=== PATIENT | female | born 1955 | race Native Hawaiian/Other Pacific Islander ===

== ENCOUNTER 2019-07-24 13:05 | Outpatient (CLI) | payer OTHER, BC ==
[2019-07-24 13:35] LABS: PLATELET COUNT 252 K/uL (152-353)
[2019-07-24 13:55] LABS: POTASSIUM 3.9 mmol/L (3.6-5.2)
== END 2019-07-24 19:15 | disposition home or self-care (01) ==
LOC: US 13:05
PROVIDERS: Emergency Medicine
DX: Z01.812 Encounter for preprocedural laboratory examination (principal); R60.0 Localized edema; M79.7 Fibromyalgia; M25.562 Pain in left knee; M54.5 Low back pain; M25.561 Pain in right knee; R82.998 Other abnormal findings in urine; R60.1 Generalized edema; M79.662 Pain in left lower leg; G89.4 Chronic pain syndrome
CPT/HCPCS: 36415; 80053; 81000; 84436; 84443; 84479; 85027; 87077; 87086; 87088; 87186

== ENCOUNTER 2019-10-15 11:10 | Outpatient (CLI) | payer OTHER, BC ==
[2019-10-15 12:04] LABS: PLATELET COUNT 394 K/uL (152-353)
[2019-10-15 12:40] LABS: POTASSIUM 4.1 mmol/L (3.6-5.2)
== END 2019-10-15 20:26 | disposition home or self-care (01) ==
LOC: RESP 11:10 → LAB 11:10 → RESP 12:00
PROVIDERS: Emergency Medicine
DX: Z01.89 Encounter for other specified special examinations (principal); R60.0 Localized edema; M79.7 Fibromyalgia; M71.21 Synovial cyst of popliteal space [Baker], right knee
CPT/HCPCS: 36415; 80053; 83735; 84439; 84443; 84480; 85027; 93306